=== PATIENT | male | born 1965 | race Caucasian/White ===

== ENCOUNTER 2017-01-28 11:29 | Emergency (ER) | payer OTHER ==
[~2017-01-28] VITALS: Ht 167.6 cm; Wt 99.5 kg
[2017-01-28 11:33] VITALS: Ht 167.6 cm; Wt 99.5 kg
[2017-01-28] MEDS ORDERED: KETOROLAC 60 MG INJ IM STA (11:42)
--- NOTE | 2017-01-28 11:52 | ERD ---
ER Documentation Chief Complaint Date/Time DATE: 01/28/17 TIME: 11:40 Chief Complaint Complains of left knee pain x 4 days HPI 51-year-old male presents emergency department for left knee pain since Monday. Stated that he was jogging, stepped on his left foot so hard that he heard a pop to his left knee. He was able to walk after the injury. Able to bear weight on the affected side after the injury. Denies headache, head injury, dizziness, blurry vision, neck pain, shoulder pain , chest pain, back pain, abdominal pain, nausea, vomiting, constant, diarrhea, loss of bowel and bladder control, urinary symptoms, numbness or tingling sensation, fever, chills. No known drug allergies. No past medical history. No surgeries. Does not take any prescription medications at home. Social: Does not work at this time. Denies smoking, use of alcohol, use of illegal drugs. ROS All systems reviewed and are negative except as per history of present illness. Medications Home Meds Active Scripts Tramadol HCl (Tramadol HCl) 50 Mg Tablet, 50 MG PO Q4 Y for PAIN, #5 TAB Prov:GEREMIAS GARCIA Johnnie 01/28/17 Ibuprofen* (Motrin*) 800 Mg Tab, 800 MG PO Q8 Y for PAIN AND OR ELEVATED TEMP, # 30 TAB Prov:GEREMIAS GARCIA 01/28/17 Allergies Allergies: Coded Allergies: No Known Allergy (Unverified , 01/28/17) PMhx/Soc Medical and Surgical Hx: pt denies Medical Hx, pt denies Surgical Hx Hx Alcohol Use: No Hx Substance Use: No Hx Tobacco Use: No Smoking Status: Never smoker Physical Exam Vitals Vital Signs Date Time Temp Pulse Resp B/P Pulse Ox O2 Delivery O2 Flow Rate FiO2 01/28/17 13:08 98.8 71 20 128/90 98 Room Air 01/28/17 11:33 99.5 87 20 134/90 98 Physical Exam Const: [] Head: Atraumatic Eyes: Normal Conjunctiva ENT: Normal External Ears, Nose and Mouth. Neck: Full range of motion..~ No meningismus. Resp: Clear to auscultation bilaterally Cardio: Regular rate and rhythm, no murmurs Abd: Soft, non tender, non distended. Normal bowel sounds Skin: No petechiae or rashes Back: No midline or flank tenderness Ext: No cyanosis, or edema. Right knee is unremarkable. Left knee is swollen without discoloration and is not warm to touch. Has good and full range of motion of the left knee. Has tenderness to palpation medially and laterally. Bilateral hips are unremarkable. Left ankle/foot are unremarkable. No neurovascular deficits. No neurological deficits. Neur: Awake and alert Psych: Normal Mood and Affect Results 24 hrs Current Medications Medications (Trade) Dose Ordered Sig/Leighann Route PRN Reason Start Time Stop Time Status Last Admin Dose Admin Ketorolac Tromethamine (Toradol) 60 mg ONCE STAT IM 01/28/17 11:42 01/28/17 11:44 DC 01/28/17 11:48 Procedures/MDM 51-year-old male presents emergency department for left knee pain since Monday. Stated that he was jogging, stepped on his left foot so hard that he heard a pop to his left knee. He was able to walk after the injury. Able to bear weight on the affected side after the injury. Denies headache, head injury, dizziness, blurry vision, neck pain, shoulder pain , chest pain, back pain, abdominal pain, nausea, vomiting, constant, diarrhea, loss of bowel and bladder control, urinary symptoms, numbness or tingling sensation, fever, chills. No known drug allergies. No past medical history. No surgeries. Does not take any prescription medications at home. Social: Does not work at this time. Denies smoking, use of alcohol, use of illegal drugs. Physical exam: Right knee is unremarkable. Left knee is swollen without discoloration and is not warm to touch. Has good and full range of motion of the left knee. Has tenderness to palpation medially and laterally. Bilateral hips are unremarkable. Left ankle/foot are unremarkable. No neurovascular deficits. No neurological deficits. Disease process was explained to the patient. He verbalized understanding and agreed with the diagnostic test, treatment, plan of care, follow-up care. X-ray of the left knee: Moderate joint effusion. Otherwise, unremarkable left knee series. Treatment: Toradol IM. Reevaluation: Denies headache, dizziness, blurry vision, neck pain, shoulder pain, chest pain, back pain, abdominal pain. Denies left knee pain. No neurovascular deficits prior to and after the application of Lisandro wrap. No neurological deficits. Differential diagnosis: Fracture versus dislocation versus displacement versus contusion versus sprain Final diagnosis: Knee sprain Prescription: Motrin. Follow-up with primary care physician the next 24-48 hours. PCP to refer patient to orthopedic doctor if symptoms get worse. Come back in the emergency department for any new symptoms or any worsening of symptoms. All questions and concerns were answered. Patient verbalized understanding and agreed with the plan of care. Hemodynamically stable on discharge. Departure Diagnosis: Primary Impression: Knee pain Additional Impression: Knee sprain Condition: Stable Additional Instructions: Follow-up with primary care physician the next 24-48 hours. PCP to refer patient to orthopedic doctor if symptoms get worse. Come back in the emergency department for any new symptoms or any worsening of symptoms. All questions and concerns were answered. Patient verbalized understanding and agreed with the plan of care. GEREMIAS GARCIA Jan 28, 2017 11:52
--- NOTE | 2017-01-28 12:34 | RADRPT ---
PROCEDURE: CR Left Knee CLINICAL INDICATION: Injury, pain TECHNIQUE: An AP, a tunnel view and a lateral view were submitted. COMPARISON: None FINDINGS: Osseous Structures: The osseous elements appear well mineralized and intact. Joint Spaces: The joint spaces are well maintained. There is a moderate joint effusion.. Soft Tissues: The soft tissues appear unremarkable. IMPRESSION: 1. Moderate joint effusion. 2. Otherwise, unremarkable left knee series. Physician Rebecca Date Time Electronically viewed and signed by Prashanth Velasco Physician on 01/28/2017 12:34 RH/
[2017-01-28] MEDS ORDERED: IBUP800T25 PO (12:43)
[2017-01-28] MEDS ORDERED: TRAM50TA2 PO (12:44)
[2017-01-28 13:08] VITALS: BP 128/90; PULSE 71; RESP 20; TEMP 98.8
== END 2017-01-28 13:09 | disposition home or self-care (01) ==
LOC: FTE 11:29
DX: S83.92XA Sprain of unspecified site of left knee, initial encounter (principal); X50.9XXA Other and unspecified overexertion or strenuous movements or postures, initial encounter; Y92.9 Unspecified place or not applicable
CPT/HCPCS: 29505; 73562; 96372; 99284; J1885